=== PATIENT | female | born 1965 | race Two or more races ===

== ENCOUNTER 2025-05-21 02:06 | Emergency (ER) | payer OTHER ==
[~2025-05-21] VITALS: Ht 172.7 cm; Wt 81.6 kg
[~2025-05-21 02:06] MED LIST: SULFASALAZINE500 MG PO
[2025-05-21 02:10] VITALS: BP 190/100; O2SAT 99
[2025-05-21] MEDS ORDERED: hydrALAZINE HCL 20 MG VIAL IV STA (02:42)
[2025-05-21] MEDS ORDERED: hydrALAZINE HCL 20 MG VIAL ONE (02:53)
[2025-05-21 03:21] LABS: BASO % 0.6 % (0.1-1.2); EOS # 0.07 (0.04-0.54); EOS % 1.3 % (0.7-7.0); LYMPH # 2.01 (1.18-3.74); LYMPH % 38.6 % (19.3-53.1); MEAN PLATELET VOLUME 10.10 fl (9.4-12.4); MONO # 0.50 (0.24-0.82); MONO % 9.6 % (4.7-12.5); NEUT # 2.59 (1.56-6.13); NEUT % 49.7 % (34.0-71.1); RED CELL DISTRIBUTION WIDTH 13.5 % (11.6-14.4)
[2025-05-21 04:21] LABS: ALT/SGPT 33.0 U/L (12-78); AST/SGOT 15.0 U/L (15-37); BILIRUBIN TOTAL 1.26 mg/dL (0.3-1.2); BUN CREA RATIO 17.0 (7.0-25.0); CREATININE SERUM 0.93 mg/dL (0.55-1.02); GFR 61.92; GLOBULINA 3.2 G/DL (2.4-3.5); GLUCOSE FASTING 118.0 mg/dL (65-100); OSMOLALITY SERUM 285.0 MOSM/KG (275-295)
[2025-05-21] MEDS ORDERED: LABETALOL HCL 100 MG/20 ML ML IV PUSH ONE (04:30)
[2025-05-21] MEDS ORDERED: LABETALOL HCL 100 MG/20 ML ML ONE (04:32)
[2025-05-21] MEDS ORDERED: CLONIDINE HCL 0.1 MG TABLET PO ONE ×2 (05:47→06:00)
== END 2025-05-21 08:22 | disposition home or self-care (01) ==
LOC: ER 02:07
PROVIDERS: Physician Assistant Medical
DX: I16.1 Hypertensive emergency (principal); I10 Essential (primary) hypertension; Z88.8 Allergy status to other drugs, medicaments and biological substances

== ENCOUNTER → 2025-06-22 | Emergency (ER) | payer OTHER ==
[~2025-06-22] MED LIST changes: +LOSARTAN POTASS50 MG PO; +NORVASC5 MG PO; +PEPCID AC20 MG PO
== END | disposition left against medical advice (07) ==
LOC: ER 13:45
DX: Z53.21 Procedure and treatment not carried out due to patient leaving prior to being seen by health care provider (principal)

== ENCOUNTER 2025-06-23 21:44 | Emergency (ER) | payer OTHER ==
[~2025-06-23] VITALS: Ht 172.7 cm; Wt 79.4 kg
[~2025-06-23 21:44] MED LIST changes: -LOSARTAN POTASS50 MG PO; -NORVASC5 MG PO; -PEPCID AC20 MG PO
[2025-06-23] MEDS ORDERED: LOSARTAN POTASS50 MG PO (21:58)
[2025-06-23] MEDS ORDERED: NORVASC5 MG PO (21:59)
[2025-06-24] MEDS ORDERED: PEPCID AC20 MG PO (00:24)
== END 2025-06-24 01:31 | disposition home or self-care (01) ==
LOC: ER 21:44
DX: I10 Essential (primary) hypertension (principal); F41.8 Other specified anxiety disorders; Z88.8 Allergy status to other drugs, medicaments and biological substances